=== PATIENT | female | born 2000 | race Caucasian/White ===

== ENCOUNTER 2024-05-19 10:42 | Outpatient (OUT) | payer OTHER, SELFPAY ==
--- NOTE | 2024-05-19 10:52 | US_ITS ---
Patient Name: TI GAMA MR#: [id number] : 2000 Exam Date: 05/19/2024 Ordering Doctor: DR Kathy Jaeger M.D. RADIOLOGY REPORT PROCEDURE: US BREAST RT LIMITED COMPARISON: None. INDICATIONS: Right Breast Mass Near Nipple TECHNIQUE: Breast ultrasound was performed, with evaluation focusing only on specific areas of concern. FINDINGS: DIAGNOSTIC CATEGORY 1--NEGATIVE. No ultrasound abnormalities observed to correspond to the patient's palpable abnormality RECOMMENDATIONS: CLINICAL EVALUATION. PLEASE NOTE: A NORMAL ULTRASOUND EXAMINATION DOES NOT EXCLUDE THE POSSIBILITY OF BREAST CANCER. A CLINICALLY SUSPICIOUS PALPABLE LUMP SHOULD BE BIOPSIED. Dictated by: Jose G Trinh MD on 05/19/2024 at 11:16 Approved by: Jose G Trinh MD on 05/19/2024 at 11:17
== END 2024-05-19 10:43 | disposition home or self-care (01) ==
LOC: US 10:45
PROVIDERS: PCP Family Medicine; Visit Provider Family Medicine
DX: N63.10 Unspecified lump in the right breast, unspecified quadrant (principal)
CPT/HCPCS: 76642